=== PATIENT | male | born 1990 | race Caucasian/White ===

== ENCOUNTER 2020-12-18 22:35 | Emergency (ER) | payer OTHER ==
[2020-12-18] MEDS ORDERED: Amoxicillin 500 MG Cap PO ONE (22:48)
--- NOTE | 2020-12-18 22:48 | EDM.PDOC ---
ED HPI GENERAL MEDICAL PROBLEM - General Chief Complaint: Upper Extremity Injury/Pain Stated Complaint: fish hook in left hand Time Seen by Provider: 12/18/20 22:40 Source of Information: Reports: Patient History Limitations: Reports: No Limitations - History of Present Illness INITIAL COMMENTS - FREE TEXT/NARRATIVE: patient presented to the ER with a fishhook in the left hand. Per reports, he was fishing and got caught with a fishhook - his brother cut the hook in attempt to remove it but it disappeared under the skin. last tetanus was 6 years ago. Onset: Sudden Duration: Hour(s): (2) Location: Reports: Upper Extremity, Left Left Hand Pain Score (Numeric/FACES): 6 - Related Data Allergies Allergy/AdvReac Type Severity Reaction Status Date / Time No Known Allergies Allergy Verified 12/19/20 08:20 Home Meds: Home Meds NK [No Known Home Meds] 12/19/20 [History] Review of Systems - Review of Systems Review Of Systems: See Below Constitutional: Reports: No Symptoms Eyes: Reports: No Symptoms Respiratory: Reports: No Symptoms Cardiovascular: Reports: No Symptoms GI/Abdominal: Reports: No Symptoms Musculoskeletal: Reports: No Symptoms Neurological: Reports: No Symptoms ED EXAM, GENERAL - Physical Exam Exam: See Below Exam Limited By: No Limitations General Appearance: Alert, WD/WN, No Apparent Distress Eye Exam: Bilateral Eye: EOMI, PERRL Head: Atraumatic Respiratory/Chest: No Respiratory Distress Cardiovascular: Normal Peripheral Pulses GI/Abdominal: Normal Bowel Sounds, Soft Extremities: Normal Inspection Neurological: Alert, Oriented Skin Exam: Other (left hand - unable to see/feel the fishhook, but there an e ntry puncture wound ) ED TRAUMA EXTREMITY PROCEDURES - Foreign Body Removal Indication:: fishhook to left hand Consent Obtained: Patient Performing Doctor:: Kandi Gaitan Foreign Body Other Location Comment:: dorsum of left hand Anesthesia Type: Local Complications:: No Comments:: after cleaning the skin. Local anesthesia was applied. a 2cm incision was made to remove the FB ( fishhook ). no complications. After removal - wound was washed and cleaned with irrigation. 3 stitches were placed ( 4.0 ethilon ) abx ointment and a sterile dressing was applied Course - Vital Signs Last Recorded V/S: Last Vital Signs Temp 36.6 C 12/18/20 22:35 Pulse 75 12/18/20 22:35 Resp 16 12/18/20 22:35 BP 130/73 12/18/20 22:35 Pulse Ox 98 12/18/20 22:35 - Orders/Labs/Meds Orders: Active Orders 24 hr Category Date Time Status Hand 2V Lt [CR] Stat Exams 12/18/20 22:48 Taken Meds: Medications Discontinued Medications Generic Name Dose Route Start Last Admin Trade Name Junior PRN Reason Stop Dose Admin Amoxicillin 500 mg 12/18/20 22:48 12/18/20 23:30 Amoxicillin 500 Mg Cap PO 12/18/20 22:49 500 mg ONETIME ONE Administration Amoxicillin 15,000 mg 12/18/20 23:01 Amoxicillin 500 Mg Cap .ROUTE 12/18/20 23:02 .STK-MED ONE Diphtheria/Tetanus/Acell Pertussis 0.5 ml 12/19/20 00:05 12/19/20 00:05 Diphtheria,Pertussis(Acell),Tetanus Vaccine 0.5 Ml Sdv IM 12/19/20 00:06 0.5 ml .ONCE ONE Administration Lidocaine/Epinephrine 10 ml 12/18/20 23:00 12/18/20 23:30 Lidocaine 1% With Epinephrine 1:100,000 20 Ml Mdv INFILT 12/18/20 23:01 10 ml ONETIME ONE Administration - Re-Assessments/Exams Free Text/Narrative Re-Assessment/Exam: xrays of hand - showed a FB buried under the skin see procedure note - for FB removal tdap was given PO amoxicillin Departure - Departure Time of Disposition: 00:13 Disposition: Home, Self-Care 01 Condition: Good Clinical Impression: Fish hook injury of hand Qualifiers: Encounter type: initial encounter Laterality: left Qualified Code(s): S69.92XA - Unspecified injury of left wrist, hand and finger(s), initial encounter - Discharge Information *PRESCRIPTION DRUG MONITORING PROGRAM REVIEWED*: Not Applicable *COPY OF PRESCRIPTION DRUG MONITORING REPORT IN PATIENT ALAYNA: Not Applicable Instructions: Laceration Care, Adult, Sutures, Ally, or Adhesive Wound Closure Referrals: PCP,None [Primary Care Provider] - Forms: ED Department Discharge Additional Instructions: - take oral antibiotics as prescribed - apply antibiotics ointment on the wound at least once daily - suture removal between 7-10 days - watch for signs of wound infection - apply ice on the affected area to help decrease the swelling Sepsis Event Note (ED) - Focused Exam Vital Signs: Vital Signs Temp Pulse Resp BP Pulse Ox 12/18/20 22:35 36.6 C 75 16 130/73 98 - Problem List & Annotations (1) Fish hook injury of hand SNOMED Code(s): 689781994 Code(s): S69.90XA - UNSP INJURY OF UNSP WRIST, HAND AND FINGER(S), INIT ENCNTR Status: Acute Qualifiers: Encounter type: initial encounter Laterality: left Qualified Code(s): S69.92XA - Unspecified injury of left wrist, hand and finger(s), initial encounter - Problem List Review Problem List Initiated/Reviewed/Updated: Yes - My Orders Last 24 Hours: My Active Orders 12/18/20 22:48 Hand 2V Lt [CR] Stat - Assessment/Plan Last 24 Hours: My Active Orders 12/18/20 22:48 Hand 2V Lt [CR] Stat Plan: - take oral antibiotics as prescribed - apply antibiotics ointment on the wound at least once daily - suture removal between 7-10 days - watch for signs of wound infection - apply ice on the affected area to help decrease the swelling
[2020-12-18] MEDS ORDERED: Lidocaine 1% with EPINEPHrine 1:100,000 20 ML MDV INFILT ONE (23:00)
[2020-12-18] MEDS ORDERED: Amoxicillin 500 MG Cap ONE (23:01)
[2020-12-19] MEDS ORDERED: Diphtheria,Pertussis(Acell),Tetanus Vaccine 0.5 ML SDV IM ONE (00:05)
--- NOTE | 2020-12-19 12:04 | CR ---
Date of Service: 12/18/20 Clinical Data: FB under skin LEFT HAND: No priors. There is a metallic density hook fragment noted within the soft tissues posterior to the third and fourth metacarpals. There is adjacent soft tissue swelling and soft tissue emphysema. Additional images demonstrate a metallic forceps with its distal tip adjacent to the hook fragment. No osseous abnormalities. [id number] [facility]
== END 2020-12-19 00:25 | disposition home or self-care (01) ==
LOC: LB.ED 22:35
DX: S60.552A Superficial foreign body of left hand, initial encounter (principal); Z23 Encounter for immunization; W45.8XXA Other foreign body or object entering through skin, initial encounter
CPT/HCPCS: 10120; 73120; 90471; 90715; 99283; A9270; 99282